=== PATIENT | female | born 1990 | race Two or more races ===

== ENCOUNTER 2024-11-17 10:01 | Emergency (ER) | payer BC ==
[~2024-11-17] VITALS: Ht 165.1 cm; Wt 54.4 kg
[2024-11-17] MEDS ORDERED: TRAMADOL HCL 50 MG TABLET PO ONE (11:30)
== END 2024-11-17 13:25 | disposition home or self-care (01) ==
LOC: ER 10:02
DX: G89.11 Acute pain due to trauma (principal); M25.512 Pain in left shoulder